=== PATIENT | female | born 1985 | race Caucasian/White ===

== ENCOUNTER 2016-05-14 22:07 | Emergency (ER) | payer MEDICAID ==
[~2016-05-14] VITALS: Ht 144.8 cm; Wt 41.8 kg
[~2016-05-14 22:07] MED LIST: DIAZEPAM PO; PEPCID 20MG TAB20 MG PO; TOPAMAX100 MG PO; TOPIRAMATE; VALIUM2 MG PO
[2016-05-14 22:11] VITALS: TEMP 98.8
[2016-05-14] MEDS ORDERED: NORCO 325 MG-51 TAB (22:14)
[2016-05-14 23:15] LABS: BASO % 0.3 % (0.0-2.0); EOS # 0.1 (0.0-0.7); EOS % 0.5 % (0-4.0); GRAN # 7.3 (1.4-6.5); GRAN % 72.3 % (42.2-75.2); HEMATOCRIT 42.5 % (37.0-47.0); HEMOGLOBIN 14.7 g/dl (12.5-16.0); LYMPH # 2.1 (1.2-3.4); LYMPH % 20.8 % (20.0-51.0); MEAN CELL VOLUME 92 fl (80.0-100.0); MEAN CORPUSCULAR HEMOGLOBIN 32 pg (27.0-31.0); MEAN CORPUSCULAR HGB CONC 35 g/dl (33.0-37.0); MEAN PLATELET VOLUME 11.3 fl (7.4-10.4); MONO # 0.6 (0.1-0.6); MONO % 5.9 % (1.7-9.3); PLATELET COUNT 231 K/mm3 (130-400); RED BLOOD COUNT 4.64 M/mm3 (4.10-5.30); REDCELL DISTRIBUTION WIDTH-CV 12.7 % (11.5-14.5); WHITE BLOOD COUNT 10.1 K/mm3 (4.8-10.8)
[2016-05-14 23:22] LABS: ADJUSTED CALCIUM 9.8 mg/dL (8.4-10.2); ALBUMIN 4.3 gm/dL (3.5-5.0); CREATININE, serum 0.91 mg/dL (0.52-1.25); POTASSIUM 3.6 mmol/L (3.4-5.0); TOTAL PROTEIN 7.9 gm/dL (6.4-8.2)
[2016-05-15] MEDS ORDERED: ZOFRAN ODT4 MG PO (00:06)
[2016-05-15] MEDS ORDERED: ULTRAM 50MG TAB50 MG PO (00:19)
[2016-05-15 00:46] VITALS: BP 132/85; PULSE 98
== END 2016-05-15 00:48 | disposition home or self-care (01) ==
LOC: COL.ER 22:07
PROVIDERS: Family Medicine
DX: K75.9 Inflammatory liver disease, unspecified (principal); G80.9 Cerebral palsy, unspecified; R56.9 Unspecified convulsions
CPT/HCPCS: J1170; J2060; J2405; J7030